=== PATIENT | female | born 1955 | race Caucasian/White ===

== ENCOUNTER 2017-02-12 19:01 | Inpatient (IN) | payer OTHER ==
[~2017-02-12] VITALS: Ht 152.4 cm; Wt 61.0 kg
[2017-02-12] MEDS ORDERED: AMLO-147 PO (22:05)
[2017-02-12] MEDS ORDERED: DOCU100C26 PO (22:05)
[2017-02-12] MEDS ORDERED: HYDR-3671 PO (22:06)
[2017-02-12] MEDS ORDERED: FAMO20TA18 PO (22:07)
[2017-02-12] MEDS ORDERED: BENA40TA41 PO (22:07)
[2017-02-12] MEDS ORDERED: SEVE800T10 PO (22:08)
[2017-02-12] MEDS ORDERED: ATOR40TA68 PO (22:08)
[2017-02-12] MEDS ORDERED: METO-448 PO (22:08)
[2017-02-12] MEDS ORDERED: ASPI-664 PO (22:09)
--- NOTE | 2017-02-12 22:25 | ERA ---
ER Documentation Chief Complaint Date/Time DATE: 02/12/17 TIME: 22:24 Chief Complaint Headache HPI The patient is a 61-year-old female, presenting to the ER because of intermittent headache for the last 3 weeks, worse today. She did not need to dialysis today because of the headache. She had left eye surgery in September 2016 at [facility]; however she could not see anything from the left eye before and after surgery. She denies neck pain, chest pain, dyspnea, abdominal pain, vomiting, dysuria. -S-h-e does not smoke nor drink Past medical history: Chronic kidney disease, dyslipidemia, hypertension past Surgical history: Right chest hemodialysis catheter, left eye surgery ROS All systems reviewed and are negative except as per history of present illness. Medications Home Meds Reported Medications Aspirin* (Aspirin* EC) 81 Mg Tablet.dr, 81 MG PO DAILY, TAB 02/12/17 Sevelamer Hcl* (Renagel*) 800 Mg Tablet, 1600 MG PO WITH MEALS, TAB 02/12/17 Atorvastatin* (Atorvastatin*) 40 Mg Tablet, 40 MG PO QHS, #30 TAB 02/12/17 Metoprolol Tartrate* (Lopressor*) 25 Mg Tab, 25 MG PO BID, #60 TAB 02/12/17 Famotidine* (Famotidine*) 20 Mg Tablet, 20 MG PO BID, #60 TAB 02/12/17 Benazepril Hcl* (Benazepril Hcl*) 40 Mg Tablet, 40 MG PO DAILY, #30 TAB 02/12/17 Hydralazine Hcl* (Hydralazine Hcl*) 25 Mg Tab, 25 MG PO QID, #60 TAB 02/12/17 Amlodipine Besylate* (Amlodipine Besylate*) 10 Mg Tablet, 10 MG PO DAILY, #30 TAB 02/12/17 Docusate Sodium* (Doc-Q-Lace*) 100 Mg Capsule, 100 MG PO BID Y for CONSTIPATION , CAP 02/12/17 Allergies Allergies: Coded Allergies: No Known Allergy (Unverified , 02/12/17) Physical Exam Vitals Vital Signs Date Time Temp Pulse Resp B/P Pulse Ox O2 Delivery O2 Flow Rate FiO2 02/12/17 23:53 59 16 139/76 99 Room Air 02/12/17 19:17 98.6 74 16 119/57 100 Physical Exam Const: No acute distress. Head: Atraumatic. Eyes: Erythematous conjunctiva more on the left than the right, left hyphema ENT: Normal External Ears, Nose and Mouth. Neck: Full range of motion. No meningismus. Resp: Clear to auscultation bilaterally. Cardio: Regular rate and rhythm. Abd: Soft, non distended, normal bowel sounds, non tender. Skin: No petechiae or rashes. Back: No midline or flank tenderness. Ext: No cyanosis, or edema. Neur: Awake and alert. No focal deficit Psych: Normal Mood and Affect. Result Diagram: 02/12/17222902/12/172229 Results 24 hrs Laboratory Tests Test 02/12/17 22:30 White Blood Count 4.510^3/ul Red Blood Count 3.2110^6/ul Hemoglobin 11.2g/dl Hematocrit 34.1% Mean Corpuscular Volume 106.2fl Mean Corpuscular Hemoglobin 34.9pg Mean Corpuscular Hemoglobin Concent 32.8g/dl Red Cell Distribution Width 13.9% Platelet Count 90321^3/UL Mean Platelet Volume 10.7fl Neutrophils % 40.3% Lymphocytes % 42.5% Monocytes % 11.0% Eosinophils % 4.9% Basophils % 1.1% Nucleated Red Blood Cells % 0.0/100WBC Neutrophils # 1.810^3/ul Lymphocytes # 1.910^3/ul Monocytes # 0.510^3/ul Eosinophils # 0.210^3/ul Basophils # 0.110^3/ul Nucleated Red Blood Cells # 0.010^3/ul Prothrombin Time 11.8Sec Prothrombin Time Ratio 0.9 INR International Normalized Ratio 0.87 Activated Partial Thromboplast Time 31.6Sec Sodium Level 142mmol/L Potassium Level 5.9mmol/L Chloride Level 104mmol/L Carbon Dioxide Level 26mmol/L Anion Gap 18 Blood Urea Nitrogen 24mg/dl Creatinine 5.29mg/dl Glucose Level 109mg/dl Calcium Level 9.0mg/dl Magnesium Level 2.6mg/dl Current Medications Medications (Trade) Dose Ordered Sig/Johana Route PRN Reason Start Time Stop Time Status Last Admin Dose Admin Sodium Polystyrene Sulfonate (Kayexalate) 30 gm ONCE ONCE PO 02/13/17 01:03 02/13/17 01:09 DC 02/13/17 01:27 Albuterol (Proventil 0.5% (Neb)) 15 mg ONCE ONCE INH 02/13/17 01:09 02/13/17 01:10 DC 02/13/17 01:36 Insulin Human Regular (Humulin R) 10 unit ONCE ONCE IV 02/13/17 01:09 02/13/17 01:10 DC 02/13/17 01:28 Dextrose (D50w Syringe) 100 ml ONCE ONCE IV 02/13/17 01:09 02/13/17 01:10 DC 02/13/17 01:26 Ondansetron HCl (Zofran Inj) 4 mg ONCE STAT IV 02/13/17 01:18 02/13/17 01:19 DC 02/13/17 01:28 Procedures/MDM EKG: Read by emergency physician Rate/Rhythm: Normal Sinus Rhythm 60 beats/min QRS, ST, T-waves: No ST elevation, no T inversion Impression: Normal EKG [place] [id number] Radiology Main Line: [phone] DIAGNOSTIC IMAGING REPORT Patient: TAYLER PACHECO : 1955 Age: 61 Sex: F MR #: [id number] DOS: 02/12/17 2259 Ordering MD: GEREMIAS STORM MD Location: E/R Room/Bed: PROCEDURE: CT Brain without contrast. CLINICAL INDICATION: Headache. TECHNIQUE: A CT of the brain was performed on multidetector high-resolution CT scanner utilizing axial sections from the skull base through the vertex without contrast. The scan was reviewed in soft tissue brain and high frequency resolution bone algorithm windows. Images were reviewed on a high- resolution PACS workstation. One or more the following does reduction techniques were utilized: Automated exposure control, adjustment of the mA/ or kV according to patient's size, or use of iterative reconstruction technique. The exam CTDI = 42.83 mGy and the DLP = 630.2 mGy-cm. COMPARISON: None available. FINDINGS: The ventricles and sulci are mildly prominent indicative of volume loss. There is no intracranial hemorrhage, mass effect or midline shift. No abnormal intra- axial or extra-axial fluid collections are seen. The harmon/white matter differentiation is preserved. There are mild scattered foci of hypoattenuation in the white matter, which are nonspecific in etiology but likely reflect chronic small vessel ischemic changes. There are mild intracranial vascular calcifications consistent with atherosclerosis. The visualized paranasal sinuses are essentially clear. IMPRESSION: 1. No acute intracranial hemorrhage, transcortical infarction or mass effect. 2. Mild intracranial atherosclerosis and chronic small vessel ischemic changes. 3. Mild generalized cerebral volume loss. RPTAT: HFN .De Hedrick MD, MD Date Time Electronically viewed and signed by .De Hedrick MD, MD on 02/12/2017 23: 26 .N/ CC: GEREMIAS STORM MD MEDICAL MAKING DECISION: The patient is a 61-year-old female, presenting with an acute headache of unclear etiology, acute hyperkalemia. She was treated with Parks 5 mg p.o. for headache and Zofran 4 mg IV for nausea, 2 amp D50 IV, 10 units of regular insulin IV, Kayexalate 30 g p.o. and albuterol 15 mg nebulizer with good response. The differential diagnoses considered include but are not limited to subarachnoid hemorrhage, occult trauma, CVA, meningitis, encephalitis, hypertension, tension, migraine, cluster, narcotic withdrawal, cervical spine disease. Critical Care: Time: 35 minutes excluding all billable procedures. Treatments/Evaluations: Close monitoring and treatment of unstable vital signs, cardiorespiratory, and neurologic status, while maintaining tight balance of fluid, respiratory, and cardiac interventions. Departure Diagnosis: Primary Impression: Hyperkalemia Additional Impressions: Cephalalgia Hypermagnesemia Anemia Condition: Stable Comments I discussed the findings with the patient. I discussed the patient with the hospitalist Dr. Montelongo at 1:20 AM who was made aware of the lab, the treatment, the patient condition. The patient is admitted to [facility] GEREMIAS STORM MD Feb 12, 2017 22:25
--- NOTE | 2017-02-12 23:26 | RADRPT ---
PROCEDURE: CT Brain without contrast. CLINICAL INDICATION: Headache. TECHNIQUE: A CT of the brain was performed on multidetector high-resolution CT scanner utilizing a xial sections from the skull base through the vertex without contrast. The scan was reviewed in sof t tissue brain and high frequency resolution bone algorithm windows. Images were reviewed on a high -resolution PACS workstation. One or more the following does reduction techniques were utilized: Aut omated exposure control, adjustment of the mA/ or kV according to patient's size, or use of iterativ e reconstruction technique. The exam CTDI = 42.83 mGy and the DLP = 630.2 mGy-cm. COMPARISON: None available. FINDINGS: The ventricles and sulci are mildly prominent indicative of volume loss. There is no intracranial h emorrhage, mass effect or midline shift. No abnormal intra-axial or extra-axial fluid collections a re seen. The harmon/white matter differentiation is preserved. There are mild scattered foci of hypoattenuation in the white matter, which are nonspecific in etiol ogy but likely reflect chronic small vessel ischemic changes. There are mild intracranial vascular calcifications consistent with atherosclerosis. The visualized paranasal sinuses are essentially josé luis ar. IMPRESSION: 1. No acute intracranial hemorrhage, transcortical infarction or mass effect. 2. Mild intracranial atherosclerosis and chronic small vessel ischemic changes. 3. Mild generalized cerebral volume loss. RPTAT: HFN .De Hedrick MD, MD Date Time Electronically viewed and signed by .De Hedrick MD, MD on 02/12/2017 23:26 .N/
[2017-02-12 23:35] LABS: BASOPHIL # 0.1 10^3/ul (0.0-0.1); BASOPHILS % 1.1 % (0.0-2.0); EOSINOPHILS # 0.2 10^3/ul (0.0-0.5); EOSINOPHILS % 4.9 % (0.0-7.0); HEMATOCRIT 34.1 % (37.0-47.0); HEMOGLOBIN 11.2 g/dl (12.0-16.0); LYMPHOCYTES # 1.9 10^3/ul (0.8-2.9); LYMPHOCYTES % 42.5 % (15.0-51.0); MEAN CORPUSCULAR HEMOGLOBIN 34.9 pg (29.0-33.0); MEAN CORPUSCULAR HGB CONC 32.8 g/dl (32.0-37.0); MEAN CORPUSCULAR VOLUME 106.2 fl (82.0-101.0); MEAN PLATELET VOLUME 10.7 fl (7.4-10.4); MONOCYTE # 0.5 10^3/ul (0.3-0.9); NEUTROPHIL # 1.8 10^3/ul (1.6-7.5); NEUTROPHILS % 40.3 % (39.0-77.0); PLATELET COUNT 182 10^3/UL (140-415); RED BLOOD COUNT 3.21 10^6/ul (4.20-5.40); RED CELL DISTRIBUTION WIDTH 13.9 % (11.5-14.5); WHITE BLOOD COUNT 4.5 10^3/ul (4.8-10.8)
[2017-02-12 23:48] LABS: INR 0.87; PROTIME 11.8 Sec (12.2-14.2); PT RATIO 0.9
[2017-02-12 23:49] LABS: PARTIAL THROMBOPLASTIN TIME 31.6 Sec (25.0-35.0)
[2017-02-12 23:51] LABS: CREATININE 5.29 mg/dl (0.44-1.00); MAGNESIUM 2.6 mg/dl (1.7-2.5); POTASSIUM 5.9 mmol/L (3.5-5.1)
[2017-02-13] VITALS (12 sets, daily range): BP systolic 75–146; BP diastolic 44–67; PULSE 72–91; RESP 17–20; TEMP 98.7; Ht 152.4 cm; Wt 61.0 kg
[2017-02-13] MEDS ORDERED: NA POLYST SULFON 15 GM/60 ML BTL PO ONE (01:03)
[2017-02-13] MEDS ORDERED: DEXTROSE 50% 50 ML SYRINGE IV ONE (01:09)
[2017-02-13] MEDS ORDERED: ALBUTEROL 0.5% (NEB) 2.5 MG/0.5 ML AMP INH ONE (01:09)
[2017-02-13] MEDS ORDERED: INSULIN REGULAR, HUMAN 100 UNIT/1 ML 3ML VIAL IV ONE (01:09)
[2017-02-13] MEDS ORDERED: ONDANSETRON 4 MG INJ IV STA (01:18)
[2017-02-13] MEDS ORDERED: HYDROCODONE/APAP (5/325) TAB PO ONE (01:30)
[2017-02-13] MEDS ORDERED: MIDODRINE 5 MG TAB PO ONE (04:00)
[2017-02-13] MEDS ORDERED: ONDANSETRON 4 MG INJ IV PRN (04:00)
[2017-02-13] MEDS ORDERED: SOD CHLORIDE 0.9% 250 ML IV ONE (04:00)
[2017-02-13] MEDS: ACETAMINOPHEN 325 MG TAB PO PRN ×2 (06:59→15:53)
--- NOTE | 2017-02-13 07:36 | HP ---
Date/Time of Note Date/Time of Note DATE: 02/13/17 TIME: 07:30 Assessment/Plan VTE Prophylaxis VTE Prophylaxis Intervention: SCD's Lines/Catheters IV Catheter Type (from [facility]): Saline Lock Urinary Cath still in place: No Assessment/Plan Assessment/Plan 1. Headache, likely migraine -Head CT was negative for any acute findings -will provide pain medication as needed -Consider additional imaging 2. ESRD on HD -Missed last dialysis because of headache -Nephrology consult for dialysis 3. Hyperkalemia, secondary to above -See #2 4. History of hypertension, blood pressure within goal -Continue antihypertensives with adjustment as needed 5. History of dyslipidemia -Continue statin HPI/ROS Admit Date/Time Admit Date/Time Feb 13, 2017 at 01:19 Hx of Present Illness This is a 61-year-old female with a history of ESRD on HD, hypertension, dyslipidemia who presented to the ER complaining of headache x 1 day. Pain is diffuse. Denied neck stiffness, nausea, vomiting. She has a history of left eye blindness. Because of the headache patient missed her last dialysis session. When presented to the ER, vitals were stable. Labs shows potassium of 5.9, BUN 24, creatinine 5.3, magnesium 2.6 and hemoglobin 11.2. Head CT was negative for any acute findings. PMH/Family/Social Social History Smoking Status: Never smoker Exam/Review of Systems Vital Signs Vitals Vital Signs Date Time Temp Pulse Resp B/P Pulse Ox O2 Delivery O2 Flow Rate FiO2 02/13/17 04:55 91 02/13/17 04:00 97.9 17 75/44 95 02/13/17 02:51 Room Air 02/13/17 01:36 21 Exam Constitutional: alert, oriented, well developed Head: atraumatic, normocephalic Eyes: EOMI, PERRL Respiratory: clear to auscultation, normal air movement Cardiovascular: nl pulses, regular rate and rhythm Gastrointestinal: soft Extremities: normal pulses Labs Result Diagram: 02/12/17222902/12/172229 Medications Medications Current Medications Acetaminophen (Tylenol Tab) 650 mg Q6H PRN PO PAIN AND OR ELEVATED TEMP Last administered on 02/13/17t 06:59; Admin Dose 650 MG; Start 02/13/17 at 04:00 Ondansetron HCl (Zofran Inj) 4 mg Q6H PRN IV NAUSEA AND/OR VOMITING Last administered on 02/13/17t 05:21; Admin Dose 4 MG; Start 02/13/17 at 04:00 Influenza Virus Vaccine (Fluzone) 0.5 ml ONCE ONCE IM* ; Start 02/14/17 at 09: 00; Stop 02/14/17 at 09:01 MARILIA WANG MD Feb 13, 2017 07:36
[2017-02-13 08:27] LABS: BASOPHILS % 0.8 % (0.0-2.0); EOSINOPHILS % 0.4 % (0.0-7.0); HEMATOCRIT 31.8 % (37.0-47.0); HEMOGLOBIN 10.1 g/dl (12.0-16.0); LYMPHOCYTES # 0.9 10^3/ul (0.8-2.9); LYMPHOCYTES % 17.3 % (15.0-51.0); MEAN CORPUSCULAR HEMOGLOBIN 34.4 pg (29.0-33.0); MEAN CORPUSCULAR HGB CONC 31.8 g/dl (32.0-37.0); MEAN CORPUSCULAR VOLUME 108.2 fl (82.0-101.0); MEAN PLATELET VOLUME 10.3 fl (7.4-10.4); MONOCYTE # 0.5 10^3/ul (0.3-0.9); MONOCYTES % 9.1 % (0.0-11.0); NEUTROPHIL # 3.7 10^3/ul (1.6-7.5); NEUTROPHILS % 72.2 % (39.0-77.0); PLATELET COUNT 160 10^3/UL (140-415); RED BLOOD COUNT 2.94 10^6/ul (4.20-5.40); RED CELL DISTRIBUTION WIDTH 14.3 % (11.5-14.5); WHITE BLOOD COUNT 5.2 10^3/ul (4.8-10.8)
[2017-02-13 08:47] LABS: ALBUMIN 4.2 g/dl (3.3-4.9); ALBUMIN/GLOBULIN RATIO 1.31; CALCIUM 8.8 mg/dl (8.4-10.2); CREATININE 6.21 mg/dl (0.44-1.00); MAGNESIUM 2.4 mg/dl (1.7-2.5); PHOSPHORUS 4.7 mg/dl (2.5-4.9); POTASSIUM 4.9 mmol/L (3.5-5.1); TOTAL PROTEIN 7.4 g/dl (6.1-8.1)
--- NOTE | 2017-02-13 15:38 | DS ---
Date/Time of Note Date/Time of Note DATE: 02/13/17 TIME: 15:31 Discharge Summary Admission/Discharge Info Admit Date/Time Feb 13, 2017 at 01:19 Discharge Date/Time Discharge Diagnosis 1. Headache, likely from blood pressure change, resolved 2. Hypertension, hold antihypertensives, follow up with PCP 3. ESRD, DD, follow up with nephrology 4. Macrocytic anemia, follow up with PCP Patient Condition: Stable Hospital Course 69 years old female with HD and ESRD on DD has been having headache every time after starting HD in the last 3 months or so. She finds her blood pressure is high prior to HD but gets very low after starting HD that she has headache. No headache today. No blurring vision. CT head no acute changes. On admission, her blood pressure was in 90s, all antihypertensives were held. Blood pressure today is 105/51 without any antihypertensives. I feel her headache is likely blood pressure related. From high down to low in short period of time is probably the reason of her headache. I will keep holding her antihypertensive and follow up with PCP for blood antihypertensives adjustment. Transient high blood pressure from anxiety does not need intermission coordinator antihypertensive treatment. Home Meds Reported Medications Aspirin* (Aspirin* EC) 81 Mg Tablet.dr, 81 MG PO DAILY, TAB 02/12/17 Sevelamer Hcl* (Renagel*) 800 Mg Tablet, 1600 MG PO WITH MEALS, TAB 02/12/17 Atorvastatin* (Atorvastatin*) 40 Mg Tablet, 40 MG PO QHS, #30 TAB 02/12/17 Famotidine* (Famotidine*) 20 Mg Tablet, 20 MG PO BID, #60 TAB 02/12/17 Docusate Sodium* (Doc-Q-Lace*) 100 Mg Capsule, 100 MG PO BID Y for CONSTIPATION , CAP 02/12/17 Discontinued Reported Medications Metoprolol Tartrate* (Lopressor*) 25 Mg Tab, 25 MG PO BID, #60 TAB 02/12/17 Benazepril Hcl* (Benazepril Hcl*) 40 Mg Tablet, 40 MG PO DAILY, #30 TAB 02/12/17 Hydralazine Hcl* (Hydralazine Hcl*) 25 Mg Tab, 25 MG PO QID, #60 TAB 02/12/17 Amlodipine Besylate* (Amlodipine Besylate*) 10 Mg Tablet, 10 MG PO DAILY, #30 TAB 02/12/17 Follow-up Plan PCP in one week Primary Care Provider Caleb Moffett MD Pending Labs Laboratory Tests Test 02/12/17 22:30 02/13/17 01:30 02/13/17 07:57 White Blood Count 4.510^3/ul (4.8-10.8) 5.210^3/ul (4.8-10.8) Red Blood Count 3.2110^6/ul (4.20-5.40) 2.9410^6/ul (4.20-5.40) Hemoglobin 11.2g/dl (12.0-16.0) 10.1g/dl (12.0-16.0) Hematocrit 34.1% (37.0-47.0) 31.8% (37.0-47.0) Mean Corpuscular Volume 106.2fl (82.0-101.0) 108.2fl (82.0-101.0) Mean Corpuscular Hemoglobin 34.9pg (29.0-33.0) 34.4pg (29.0-33.0) Mean Corpuscular Hemoglobin Concent 32.8g/dl (32.0-37.0) 31.8g/dl (32.0-37.0) Red Cell Distribution Width 13.9% (11.5-14.5) 14.3% (11.5-14.5) Platelet Count 46051^3/UL (140-415) 63623^3/UL (140-415) Mean Platelet Volume 10.7fl (7.4-10.4) 10.3fl (7.4-10.4) Neutrophils % 40.3% (39.0-77.0) 72.2% (39.0-77.0) Lymphocytes % 42.5% (15.0-51.0) 17.3% (15.0-51.0) Monocytes % 11.0% (0.0-11.0) 9.1% (0.0-11.0) Eosinophils % 4.9% (0.0-7.0) 0.4% (0.0-7.0) Basophils % 1.1% (0.0-2.0) 0.8% (0.0-2.0) Nucleated Red Blood Cells % 0.0/100WBC (0.0-0.0) 0.0/100WBC (0.0-0.0) Neutrophils # 1.810^3/ul (1.6-7.5) 3.710^3/ul (1.6-7.5) Lymphocytes # 1.910^3/ul (0.8-2.9) 0.910^3/ul (0.8-2.9) Monocytes # 0.510^3/ul (0.3-0.9) 0.510^3/ul (0.3-0.9) Eosinophils # 0.210^3/ul (0.0-0.5) 0.010^3/ul (0.0-0.5) Basophils # 0.110^3/ul (0.0-0.1) 0.010^3/ul (0.0-0.1) Nucleated Red Blood Cells # 0.010^3/ul (0.0-0.0) 0.010^3/ul (0.0-0.0) Prothrombin Time 11.8Sec (12.2-14.2) Prothrombin Time Ratio 0.9 INR International Normalized Ratio 0.87 Activated Partial Thromboplast Time 31.6Sec (25.0-35.0) Sodium Level 142mmol/L (135-144) 147mmol/L (135-144) Potassium Level 5.9mmol/L (3.5-5.1) 4.9mmol/L (3.5-5.1) Chloride Level 104mmol/L (97-110) 105mmol/L (97-110) Carbon Dioxide Level 26mmol/L (21-31) 23mmol/L (21-31) Anion Gap 18 (8-16) 24 (8-16) Blood Urea Nitrogen 24mg/dl (7-20) 24mg/dl (7-20) Creatinine 5.29mg/dl (0.44-1.00) 6.21mg/dl (0.44-1.00) Glucose Level 109mg/dl (70-220) 136mg/dl (70-220) Calcium Level 9.0mg/dl (8.4-10.2) 8.8mg/dl (8.4-10.2) Magnesium Level 2.6mg/dl (1.7-2.5) 2.4mg/dl (1.7-2.5) Bedside Glucose 102mg/dL (70-220) Phosphorus Level 4.7mg/dl (2.5-4.9) Total Bilirubin 0.0mg/dl (0.2-1.3) Direct Bilirubin 0.00mg/dl (0.00-0.20) Indirect Bilirubin 0.0mg/dl (0-1.1) Aspartate Amino Transf (AST/SGOT) 34IU/L (15-46) Alanine Aminotransferase (ALT/SGPT) 34IU/L (13-69) Alkaline Phosphatase 145IU/L (42-121) Total Protein 7.4g/dl (6.1-8.1) Albumin 4.2g/dl (3.3-4.9) Globulin 3.20g/dl (1.3-3.2) Albumin/Globulin Ratio 1.31 ИРИНА GAONA MD Feb 13, 2017 15:38
[2017-02-14] VITALS (20 sets, daily range): BP systolic 112–165; BP diastolic 57–78; PULSE 65–93; RESP 16–20
[2017-02-14] MEDS ORDERED: INFLUENZA VIRUS VACCINE 0.5 ML (DISPENSING) IM* ONE (09:00)
[2017-02-14] MEDS ORDERED: ASPIRIN (EC) 81 MG TAB PO SCH (09:30)
[2017-02-14] MEDS ORDERED: FAMOTIDINE 20 MG TAB PO SCH (09:30)
[2017-02-14] MEDS ORDERED: BISACODYL (EC) 5 MG TAB PO PRN (09:30)
[2017-02-14] MEDS ORDERED: ONDANSETRON 4 MG INJ IV PRN (09:30)
[2017-02-14] MEDS ORDERED: DOCUSATE SODIUM 100 MG CAP PO PRN (09:30)
[2017-02-14] MEDS ORDERED: HYDROCODONE/APAP (5/325) TAB PO PRN (09:30)
[2017-02-14] MEDS ORDERED: NACL 0.9% 3 ML SYG IV SCH (09:30)
[2017-02-14] MEDS: SEVELAMER 800 MG TAB PO SCH ×2 (13:13→17:56)
[2017-02-14] MEDS ORDERED: HEPARIN 5,000 UNIT/0.5 ML VIAL SC SCH (14:00)
--- NOTE | 2017-02-14 14:45 | PN ---
Date/Time of Note Date/Time of Note DATE: 02/14/17 TIME: 14:40 Assessment/Plan VTE Prophylaxis VTE Prophylaxis Intervention: ambulation Lines/Catheters IV [facility] Saline Lock Urinary Cath still in place: No Assessment/Plan Chief Complaint/Hosp Course Patient is a 61-year-old female with a past medical history significant for end-stage renal disease on hemodialysis and hypertension who presents for headache Assessment and plan Headache, resolved ESRD on hemodialysis Hyperkalemia Hypertension, stable Dyslipidemia -Patient was discharged yesterday, however patient was monitored overnight due to hypotension, patient blood pressure has stabilized, explicit instructions were given to the patient and family with science interpreter at bedside regarding blood pressure use and proper blood pressure occasions, patient also has an appointment on Thursday with her primary care provider, it was highly encouraged she still make this appointment in order to adjust her pain medication -No headaches since initial admission, likely secondary to hypertension, -Upon evaluation of her blood pressure medication at bedside, patient is on max doses of amlodipine, benazepril, hydralazine, hydrochlorothiazide at home, stated that she would need to likely cut back on these medications as it contributes to hypotension, however patient cannot be off medication completely as there will be hypertension as well, suggested only amlodipine and benazepril to be continued and to monitor blood pressure closely at home, if blood pressure is over 180 persistently, patient was instructed to return to the ED -Patient missed her hemodialysis appointment today, nephrology was consulted, patient may leave after hemodialysis today. Problems: Subjective 24 Hr Interval Summary Free Text/Dictation no headache, feels well Exam/Review of Systems Vital Signs Vitals Vital Signs Date Time Temp Pulse Resp B/P Pulse Ox O2 Delivery O2 Flow Rate FiO2 02/14/17 12:00 74 02/14/17 11:40 98.1 17 146/70 98 02/13/17 02:51 Room Air 02/13/17 01:36 21 Intake and Output 02/13/17 02/13/17 02/14/17 15:00 23:00 07:00 Intake Total 250 ml 240 ml Balance 250 ml 240 ml Exam Physical exam General: Patient is laying in bed and answers questions appropriately Mentation: Patient is alert and oriented 4, Head: Normocephalic atraumatic Eyes: EOMI, pupils reactive to light Neck: Supple, nontender, midline Respiratory: Clear to auscultation bilaterally Cardiovascular: regular rate, no obvious murmurs Gastrointestinal: non-tender to palpation, bowel sounds heard. Neurological: Moves all extremities spontaneously Skin: No new skin lesions Results Result Diagram: 02/13/17 0757 02/13/17 0757 Medications Medications Current Medications Acetaminophen (Tylenol Tab) 650 mg Q6H PRN PO PAIN AND OR ELEVATED TEMP Last administered on 02/13/17 15:53; Admin Dose 650 MG; Start 02/13/17 at 04:00 Ondansetron HCl (Zofran Inj) 4 mg Q6H PRN IV NAUSEA AND/OR VOMITING Last administered on 02/13/17 05:21; Admin Dose 4 MG; Start 02/13/17 at 04:00 Ondansetron HCl (Zofran Inj) 4 mg Q6H PRN IV NAUSEA AND/OR VOMITING; Start at 09:30 Acetaminophen/ Hydrocodone Bitart ([place] (5/325)) 1 tab Q6H PRN PO SEVERE PAIN LEVEL 7-10; Start 02/14/17 at 09:30 Bisacodyl (Dulcolax) 5 mg DAILY PRN PO CONSTIPATION; Start 02/14/17 at 09:30 Heparin Sodium (Porcine) (Heparin (5000 Units/0.5 ml)) 5,000 unit Q8 SC Last administered on 02/14/17 13:43; Admin Dose 5,000 UNIT; Start 02/14/17 at 14: 00 Aspirin (Halfprin) 81 mg DAILY PO Last administered on 02/14/17 09:36; Admin Dose 81 MG; Start 02/14/17 at 09:30 Atorvastatin Calcium (Lipitor) 40 mg QHS PO ; Start 02/14/17 at 21:00 Docusate Sodium (Colace) 100 mg BID PRN PO CONSTIPATION; Start 02/14/17 at 09: 30 Famotidine (Pepcid) 20 mg BID PO Last administered on 02/14/17 09:36; Admin Dose 20 MG; Start 02/14/17 at 09:30 JOSE PINEDA Feb 14, 2017 14:45
--- NOTE | 2017-02-14 14:48 | PDOCDIS ---
Discharge Instructions DIAGNOSIS Discharge Diagnosis 1. Headache, likely from blood pressure change, resolved 2. Hypertension, hold antihypertensives, follow up with PCP 3. ESRD, DD, follow up with nephrology 4. Macrocytic anemia, follow up with PCP CONDITION Patient Condition: Stable HOME CARE INSTRUCTIONS: Special Diet: renal FOLLOW UP/APPOINTMENTS Follow-up Plan 1. Follow up with your PCP by wed. regarding blood pressure medications 2. Take medications as directed. Continue benazepril and amlodipine as directed, hold other blood pressure medications with frequent blood pressure checks 3. Return to ED if symptoms continue. JOSE PINEDA Feb 14, 2017 14:48
--- NOTE | 2017-02-14 14:50 | QN ---
Documentation Comment [id number] RENAL CONSULT BURT CHAVEZ MD Feb 14, 2017 14:50
[2017-02-14] MEDS ORDERED: ATORVASTATIN 40 MG TAB PO SCH (21:00)
[2017-02-15] VITALS: PULSE 104
[2017-02-15 00:06] VITALS: BP 133/73; RESP 20
[2017-02-15 04:00] VITALS: PULSE 92
--- NOTE | 2017-02-15 11:00 | CONS ---
DATE OF ADMISSION: 02/13/2017 DATE OF CONSULTATION: TYPE OF CONSULTATION: Nephrology. Thank you, Dr. Wagner and Dr. Marilia Montelongo, for kindly asking me to see this patient in nephrology [facility]. HISTORY OF PRESENT ILLNESS: The patient is an elderly female with history of ESRD, hypertension, hi story of dyslipidemia, presented complaining of headache, goes to the dialysis center Thursday, , Thursday. Today she was supposed to have dialysis. The patient's potassium is 5.9, repeat one 4 .9. The patient had brain scan done in the ER that shows no acute intracranial hemorrhage, transcor tical infarction, no mass effect, mild intracranial atherosclerosis and chronic small vessel ischemi c changes, mild generalized cerebral volume loss and the patient is being admitted for further manag ement. PAST MEDICAL HISTORY: Positive for ESRD, hypertension, dyslipidemia, history of multiple AV fistula placements, the patient has a right chest Perm-A-Cath placement. ALLERGY HISTORY: NEGATIVE. FAMILY HISTORY: Negative. SOCIAL HISTORY: Negative. MEDICATION HISTORY: At home, the patient is on: 1. Aspirin. 2. Lipitor. 3. Docusate sodium. 4. Pepcid. 5. Renvela. Currently, the patient is on: 1. Aspirin. 2. Lipitor. 3. Bisacodyl. 4. Docusate sodium. 5. Pepcid. 6. Subcutaneous heparin. 7. Hydrocodone. 8. The patient is on Zofran. REVIEW OF SYSTEMS: HEENT: On and off headache. RESPIRATORY: Unremarkable. CARDIOVASCULAR: Unremarkable. ABDOMEN: Unremarkable. EXTREMITIES: No swelling. PHYSICAL EXAMINATION: GENERAL: Overweight, obese female. VITAL SIGNS: Pulse of 74, blood pressure 146/70. HEAD: Atraumatic, normocephalic. Pupils equal, reactive to light. NECK: Supple. There is no JVD. LUNGS: Clear. CARDIOVASCULAR: S1, S2 are normal. ABDOMEN: Soft. Bowel sounds present. No palpable mass or hepatosplenomegaly. No guarding, reboun d tenderness. EXTREMITIES: No cyanosis, clubbing, or edema. CENTRAL NERVOUS SYSTEM: The patient is awake, alert, no focal deficit. LABORATORY DATA: As mentioned above. IMPRESSION 1. Headache. 2. End-stage renal disease. 3. Status post hyperkalemia. 4. History of dyslipidemia. PLAN: To continue current treatment. Hemodialysis has been ordered. Other workup per primary care doctor. Thank you, Dr. Wagner, for kindly asking me to see this patient in nephrology consultation. Dictated By: BURT CHAVEZ MD BS/NTS Conf#: [id number] DID#: [id number] CC: MARILIA MONTELONGO MD;*EndCC*
== END 2017-02-14 20:00 | disposition home or self-care (01) | DRG 102 ==
LOC: E/R 19:01 → MS4 02-13 01:19
PROVIDERS: ADMIT Internal Medicine; ATTEND Internal Medicine
PROC: 5A1D70Z Performance of Urinary Filtration, Intermittent, Less than 6 Hours Per Day (ICD-10-PCS; principal; 2017-02-14)
DX: R51 Headache (principal); N18.6 End stage renal disease; I12.0 Hypertensive chronic kidney disease with stage 5 chronic kidney disease or end stage renal disease; D53.9 Nutritional anemia, unspecified; E87.5 Hyperkalemia; E78.5 Hyperlipidemia, unspecified; Z99.2 Dependence on renal dialysis; Z79.82 Long term (current) use of aspirin
CPT/HCPCS: 36415; 70450; 80048; 80053; 82962; 83735; 84100; 85025; 85610; 85730; 90686; 90935; 93005; 94664; 96374; 96375; J1644; J1815; J2405; J7040

== ENCOUNTER 2017-09-10 17:11 | Emergency (ER) | END 2017-09-10 22:26 | disposition home or self-care (01) ==

== ENCOUNTER 2017-10-02 08:22 | Day surgery (SDC) | END 2017-10-02 12:14 | disposition home or self-care (01) ==

== ENCOUNTER → 2017-10-02 | Outpatient (CLI) | END | disposition home or self-care (01) ==

== ENCOUNTER 2019-03-04 11:11 | Day surgery (SDC) | payer BC ==
[~2019-03-04] VITALS: Ht 149.9 cm; Wt 53.8 kg
[~2019-03-04 11:11] MED LIST: ATOR40TA68 PO; BENA40TA56 PO; CLON-379 PO; FAMO20TA18 PO; FER325 PO; FOLI-49 PO; HYDR-3671 PO; LOSA100T15 PO; METO-448 PO; NIFE90TA21 PO; PRUNELAX; SVL800C PO
[2019-03-04 12:23] VITALS: Ht 149.9 cm; Wt 53.8 kg
[2019-03-04 12:26] VITALS: BP 158/70; PULSE 77; RESP 16
[2019-03-04] MEDS ORDERED: LIDOCAINE 1% (MDV) 20 ML INJ ONE (15:19)
[2019-03-04] MEDS ORDERED: IODIXANOL LOCM 50 ML BTL ONE ×2 (15:19)
[2019-03-04] MEDS ORDERED: IOHEXOL 350MG/ML 50 ML BTL ONE (15:56)
[2019-03-04 16:20] VITALS: BP 168/84; PULSE 80; RESP 18
[2019-03-07] MEDS ORDERED: [UNRECOGNIZED DRUG - OTHER] IM* ONE (10:00)
== END 2019-03-04 16:45 | disposition home or self-care (01) ==
LOC: SDS 11:11
PROVIDERS: ATTEND Surgery Vascular Surgery
DX: T82.590A Other mechanical complication of surgically created arteriovenous fistula, initial encounter (principal); Y84.8 Other medical procedures as the cause of abnormal reaction of the patient, or of later complication, without mention of misadventure at the time of the procedure; Y82.8 Other medical devices associated with adverse incidents; I12.0 Hypertensive chronic kidney disease with stage 5 chronic kidney disease or end stage renal disease; N18.6 End stage renal disease; E11.9 Type 2 diabetes mellitus without complications
CPT/HCPCS: 36902; 82962; C1725; C1894; J1644; Q9967; Z7610